=== PATIENT | female | born 1955 | race Caucasian/White ===

== ENCOUNTER 2021-09-15 10:44 | Emergency (ER) | payer MEDICARE, SELFPAY ==
--- NOTE | 2021-09-15 10:47 | ED.URI ---
HPI - URI/Sore Throat General Chief Complaint: Upper Respiratory Infection Stated Complaint: sore throat,headache Time Seen by Provider: 09/15/21 11:35 Source: patient and RN notes reviewed Mode of arrival: ambulatory Limitations: no limitations History of Present Illness HPI Narrative: 66-year-old female presents with concern for sore throat, headache, dry cough, chills. Reports symptoms started Thursday. Reports she had a COVID exposure. She denies fever, shortness of breath, nausea, vomiting, diarrhea. MD elicited complaint: cough and sore throat Related Data Home Medications Medication Instructions Recorded Confirmed ezetimibe 10 mg tablet 10 tablet PO DAILY 09/15/21 09/15/21 fluoxetine 20 mg capsule 20 cap PO DAILY 09/15/21 09/15/21 oxybutynin chloride 15 mg 15 tablet PO DAILY 09/15/21 09/15/21 tablet,extended release 24 hr rosuvastatin 40 mg tablet 40 tablet PO DAILY 09/15/21 09/15/21 Allergies Allergy/AdvReac Type Severity Reaction Status Date / Time No Known Allergies Allergy Verified 09/15/21 11:25 Review of Systems Review of Systems: CONSTITUTIONAL: Reports malaise, chills. Denies sweats, or fever. EYES: Denies visual changes, redness, or discharge. ENT: Reports rhinorrhea, sore throat. Denies congestion, sinus pain, otalgia CARDIOVASCULAR: Denies chest pain, palpitations, or edema. RESPIRATORY: Reports cough. Denies dyspnea. GASTROINTESTINAL: Denies abdominal pain, nausea, vomiting, diarrhea SKIN: Denies rash or itching. MUSCULOSKELETAL: Denies myalgia. NEUROLOGIC: Reports headache. All systems reviewed & are unremarkable except as noted in HPI and below PMFSH Comments At time of signature, agree with nursing past medical, surgical, social and family history. There is no relevant family history pertinent to the presenting complaint Exam Narrative: GENERAL: Well-appearing, well-nourished, and in no acute distress. HEAD: Normocephalic EYES: PERRLA, conjunctivae clear ENT: Nares clear no discharge. Mucous membranes moist. TM pearly ralph with dull light reflex bilaterally; no tragal tenderness. Oropharynx not erythematous without lesions. Tonsils not enlarged and without exudate, no drooling, no hoarseness, no trismus, uvula midline. NECK: Supple. No lymphadenopathy CHEST: Clear to auscultation, breath sounds equal. No wheezing, rhonchi, rales, or stridor. No respiratory distress, speaks in full sentences. HEART: Regular rate and rhythm. No murmur heard. SKIN: Warm, dry, no rash. NEURO: Alert and oriented x3. PSYCH: Normal mood and affect Course Course Emergency Course: Patient is aware of diagnosis, understands and agrees to treatment plan. Anticipatory guidance given. Patient agrees to follow-up as directed and is aware of reasons to seek care at the emergency department. Portions of this record may have been created with voice recognition software Level of Care: Express Care Visit Vital Signs Vital signs: Reviewed. MDM - URI/Sore Throat MDM Narrative Medical decision making narrative: Differential diagnosis considered: Pradhan virus, strep pharyngitis, allergic rhinitis, upper respiratory tract infection, sinusitis, rhinosinusitis, nasopharyngitis. viral pharyngitis, otitis media, otitis externa, pneumonia, bronchitis, viral cough syndrome, viral syndrome, and influenza. Exam findings show no acute concerns or changes; patient is non-toxic appearing and is in no distress. Patient is appropriate for outpatient treatment and follow-up. Lab Data Attestation: I reviewed the patient's lab results. Critical Care Time Critical Care Time Critical Care Time: No Discharge Plan Discharge Clinical Impression: Upper respiratory infection Patient Disposition: Home, Self-Care Condition: Stable Instructions: Upper Respiratory Infection (ED) Additional Instructions: Your rapid COVID test is negative Your rapid strep swab was negative today at [facility]. A throat culture will be se
[2021-09-15 11:02] VITALS: BP 130/58; PULSE 105; RESP 20; TEMP 37.1; O2SAT 96
== END 2021-09-15 11:58 | disposition home or self-care (01) ==
PROVIDERS: Emergency Provider Nurse Practitioner; PCP Internal Medicine
DX: J06.9 Acute upper respiratory infection, unspecified (principal); Z20.822 Contact with and (suspected) exposure to COVID-19; E78.00 Pure hypercholesterolemia, unspecified; F32.A Depression, unspecified
CPT/HCPCS: 87081; 87426; 87880; 99203; C9803; G0463

== ENCOUNTER 2022-09-19 08:01 | Emergency (ER) | payer MEDICARE, SELFPAY ==
[2022-09-19 08:10] VITALS: BP 151/93; PULSE 87; RESP 16; TEMP 36.9; O2SAT 97
--- NOTE | 2022-09-19 08:12 | ED.FEMALEGU ---
HPI - Female Genitourinary General Chief complaint: Urogenital-Female Stated complaint: UTI Source: patient and RN notes reviewed History of Present Illness HPI Narrative: 67 yo F presents to urgent care with complaints of dysuria and urinary urgency since yesterday morning. Pt reports lower abdominal pressure and has been sore in her left lower back as well. Denies any vomiting, diarrhea, chest pain, SOB, fevers, or chills. Pt has taken Azo at home. Related Data Home Medications Medication Instructions Recorded Confirmed ezetimibe 10 mg tablet 10 tablet PO DAILY 09/15/21 09/19/22 fluoxetine 20 mg capsule 20 cap PO BID 09/15/21 09/19/22 oxybutynin chloride 15 mg 15 tablet PO DAILY 09/15/21 09/19/22 tablet,extended release 24 hr rosuvastatin 40 mg tablet 40 tablet PO DAILY 09/15/21 09/19/22 Allergies Allergy/AdvReac Type Severity Reaction Status Date / Time No Known Allergies Allergy Verified 09/19/22 08:17 Review of Systems Review of Systems: Pertinent positives and pertinent negatives per HPI. PMFSH Comments At the time of my signature, I reviewed and agree with the nursing past medical, surgical, social, and family history. There is no relevant family history pertinent to the patient complaint. Exam Narrative: GENERAL: This is a well-nourished, well-developed patient, in no apparent distress. HEAD: normocephalic, atraumatic. EYES: Sclera clear/white. Vision is grossly intact. EARS: External ears normal, auditory canals clear and without drainage. Hearing grossly intact. NOSE: External nose normal with no obvious nasal discharge, nares without redness, no rhinorrhea. THROAT: Mucous membranes moist, posterior pharynx clear. NECK: Neck supple, non-tender without lymphadenopathy, masses or thyromegaly. CARDIOVASCULAR: Regular rate and rhythm without murmurs, gallops, or rubs. RESPIRATORY: Clear to auscultation. Breath sounds equal bilaterally. No wheezes, rales, or rhonchi. GASTROINTESTINAL: Abdomen soft, non-tender, nondistended. Bowel sounds are active. No hepato-splenomegaly, or palpable masses. No guarding. SKIN: warm, intact with no suspicious lesions or rash, good texture and turgor. NEURO: awake, alert, and oriented to person, place and time. There were no obvious focal neurologic abnormalities. BACK: Nontender without deformity or crepitus. No flank tenderness. Course Course Level of Care: Express Care Visit Vital Signs Vital signs: Vital Signs Temperature 98.4 F 09/19/22 08:10 Pulse Rate 87 09/19/22 08:10 Respiratory Rate 16 09/19/22 08:10 Blood Pressure 151/93 H 09/19/22 08:10 Pulse Oximetry 97 09/19/22 08:10 Oxygen Delivery Room Air 09/19/22 08:10 Temperature 98.4 F 09/19/22 08:19 Pulse Rate 87 09/19/22 08:19 Respiratory Rate 16 09/19/22 08:19 Blood Pressure 151/93 H 09/19/22 08:19 Pulse Oximetry 97 09/19/22 08:19 Oxygen Delivery Room Air 09/19/22 08:19 Reviewed MDM - Female Genitourinary MDM Narrative Medical decision making narrative: We will send a urine culture off to the lab; if the culture identifies an organism that the prescribed antibiotic will not treat, you will receive a phone call from an urgent care staff member and an appropriate antibiotic will be prescribed. -Your symptoms should begin to improve within a day of starting antibiotics. But you should finish all the antibiotic pills you get. Otherwise your infection might come back. -Also recommend: drink more fluid. It might help flush out germs, and it does no harm -Tylenol/ibuprofen as needed for pain -Follow-up with your primary care provider for urine recheck OR if your symptoms persist, change or worsen significantly before you can contact your personal physician then please, without delay, go to the emergency department for further evaluation. Differential Diagnosis Differential diagnosis: Likely urinary tract infection, cystitis and other (Pyelonephritis) Critical Care [place]
[2022-09-19 08:19] VITALS: BP 151/93; PULSE 87; RESP 16; TEMP 36.9; O2SAT 97
== END 2022-09-19 08:37 | disposition home or self-care (01) ==
PROVIDERS: Emergency Provider Nurse Practitioner Family; PCP Internal Medicine
DX: N39.0 Urinary tract infection, site not specified (principal); E78.00 Pure hypercholesterolemia, unspecified; F32.A Depression, unspecified
CPT/HCPCS: 81003; 87077; 87086; 87186; 99213; G0463